=== PATIENT | male | born 1995 | race African-American/Black ===

== ENCOUNTER 2022-04-30 05:42 | Emergency (ER) | payer SELFPAY ==
[~2022-04-30] VITALS: Ht 177.8 cm; Wt 68.0 kg
[2022-04-30 05:52] VITALS: BP 115/67
[2022-04-30] MEDS ORDERED: ONDANSETRON HCL 4MG TABLET PO ONE (08:00)
[2022-04-30 08:17] LABS: CHLORIDE 100 mEq/L (98-107)
[2022-04-30 08:21] LABS: INR 1.2; PROTHROMBIN TIME 12.3 sec (9.6-11.0)
[2022-04-30 08:25] LABS: HEMATOCRIT. 46.6 % (42.0-52.0); HEMOGLOBIN. 15.6 g/dL (14.0-18.0); MEAN CORPUSCULAR HEMOGLOBIN 31.2 pg (28.0-32.0); MEAN CORPUSCULAR VOLUME 92.9 fL (80.0-94.0); MEAN PLATELET VOLUME 11.1 fl (7.4-10.4); PLATELET 101 x1000/uL (130-400); RED BLOOD CELL COUNT 5.01 mill/uL (4.7-6.1); RED CELL DISTRIBUTION WIDTH 13.8 % (11.6-14.6)
[2022-04-30 08:45] LABS: PLATELET ESTIMATE DECREASED
[2022-04-30] MEDS ORDERED: SODIUM CHLORIDE 0.9% 1000ML BAG (SEPSIS BOLUS) IV ONE (09:45)
[2022-04-30 10:58] LABS: CLARITY URINE CLEAR (CLEAR); COLOR URINE YELLOW (YELLOW); KETONES URINE TRACE (NEGATIVE); LEUKOCYTE ESTERASE URINE NEGATIVE (NEGATIVE); NITRITE URINE NEGATIVE (NEGATIVE); OCCULT BLOOD URINE NEGATIVE (NEGATIVE); PH URINE 6.5 (4.5-8.0); PROTEIN URINE NEGATIVE (NEGATIVE); SPECIFIC GRAVITY URINE 1.025 (1.005-1.030)
[2022-04-30 15:01] LABS: BASOPHILS % 0.2 % (0.0-2.0); HEMATOCRIT. 44.7 % (42.0-52.0); LYMPHOCYTES % 10.1 % (20.0-50.0); MEAN CORPUSCULAR HEMOGLOBIN 31.6 pg (28.0-32.0); MEAN CORPUSCULAR VOLUME 94.2 fL (80.0-94.0); MEAN PLATELET VOLUME 11.9 fl (7.4-10.4); MONOCYTES % 10.9 % (2.0-8.0); NEUTROPHILS % 78.8 % (40.0-76.0); PLATELET 100 x1000/uL (130-400); RED BLOOD CELL COUNT 4.75 mill/uL (4.7-6.1); RED CELL DISTRIBUTION WIDTH 14.1 % (11.6-14.6)
[2022-04-30] MEDS ORDERED: ONDA8TAB13 MT ×2 (16:08)
[2022-04-30] MEDS ORDERED: ONDA4TAB11 PO (16:08)
== END 2022-04-30 16:54 | disposition home or self-care (01) ==
LOC: ER 05:42 → CANBEDREQ 16:47 → ER 16:54
DX: B34.9 Viral infection, unspecified (principal); Z20.822 Contact with and (suspected) exposure to COVID-19
CPT/HCPCS: 36415; 71045; 74176; 80053; 81003; 83605; 84145; 85025; 85610; 87040; 87077; 87086; 87426; 87804; 96360; 96361; 99291; C9803; J7030; Q0162; Z7610